=== PATIENT | female | born 1970 | race Caucasian/White ===

== ENCOUNTER 2017-04-14 20:11 | Emergency (ER) | payer OTHER ==
[~2017-04-14] VITALS: Ht 167.6 cm; Wt 87.1 kg
[~2017-04-14 20:11] MED LIST: ADULT LOW DOSE81 MG PO; ATORVASTATIN CA20 MG PO; BENADRYL ALLERG25 M1 PO; FISH OIL CONCEN1 SGL PO; LISINOPRIL HCTZ1 TAB PO; MOBIC 15MG15 MG PO; MOBIC15 M1 PO; MULTIVITAMIN1 TAB PO; PERCOCET 325 MG1 TA2 PO; TRILIPIX 135 M135 MG PO; VICODIN 5-3001 EACH PO; VITAMIN D31000 UNI1 PO
--- NOTE | 2017-04-14 21:25 | RADIOLOGY REPORT ---
EXAMINATION: XR FOREARM, RIGHT CLINICAL INFORMATION: Status post fall COMPARISON: None TECHNIQUE: AP and lateral views of the right forearm were obtained. FINDINGS: There is no fracture or dislocation visualized. The osseous structures appear unremarkable. IMPRESSION: Normal right forearm.
[2017-04-14] MEDS ORDERED: ULTRAM50 M1 PO (22:13)
--- NOTE | 2017-04-14 22:14 | ED UPPER/LOWER EXTREMITY COMPL ---
History of Present Illness General Chief Complaint: Hand or Wrist Injury Stated Complaint: PT HURT HER RT ARM Source: patient, old records Exam Limitations: no limitations Vital Signs & Intake/Output Vital Signs & Intake/Output Vital Signs Date Time Temp Pulse Resp B/P B/P Pulse O2 O2 Flow FiO2 Mean Ox Delivery Rate 04/14 2217 97.1 96 20 106/65 95 Room Air 04/14 2050 97.0 94 22 104/67 96 Room Air Allergies Coded Allergies: No Known Allergies (04/14/17) Reconcile Medications Aspirin (Adult Low Dose Aspirin EC) 81 MG TABLET.DR 81 MG PO DAILY HEART HEALTH (Reported) Atorvastatin Calcium (Lipitor) 20 MG TAB 1 TAB PO DAILY CHOLESTEROL (Reported ) Cholecalciferol (Vitamin D3) (Vitamin D3) 1,000 UNIT CAPSULE 1,000 IU PO DAILY VITAMIN SUPPLEMENT (Reported) DIPHENHYDRAMINE HCL (Benadryl) 25 MG SGL 1 CAP PO QAM ITCHING (Reported) Fenofibric Acid (Trilipix 135 MG CAP) 135 MG CAP 1 CAP PO DAILY CHOLESTEROL ( Reported) Hydrocodone/Acetaminophen (Vicodin 5-300 MG Tablet) 1 EACH TABLET 1 TAB PO Q4- 6 PRN PAIN LISINOPRIL/HYDROCHLOROTHIAZIDE (Lisinopril-Hctz 20-25 MG Tab) 1 TAB TAB 1 TAB PO DAILY BP (Reported) Meloxicam (Mobic) 15 MG TABLET 1 TAB PO DAILY PRN PAIN/INFLAMMATION Multivitamin (Multiple Vitamins) 1 TAB TAB 1 TAB PO DAILY SUPPLEMENT ( Reported) OMEGA-3 FATTY ACIDS (Fish Oil Concentrate) 1 SGL SGL 2 SGL PO BID SUPPLEMENT (Reported) Tramadol HCl (Ultram) 50 MG TABLET 1-2 TAB PO Q6PRN PRN severe pain Triage Note: TRIAGE: PT TO ER C/C RFA PAIN S/P INJURY APPROX 1 HR TWISTER IN. STATES THE DOG DARTED WHILE SHE WAS HOLDING THE LEASH AND HER ARM HIT INTO CAST IRON RAILING. +SWELLING. ICED IMMEDIATELY. REFUSES OFFERED PAIN MEDICATION AT TRIAGE. +CMS. SPLINT APPLIED AT TRIAGE. REQUESTS XRAY. Triage Nurses Notes Reviewed? yes Onset: Just prior to arrival Duration: minute(s):, constant, changing over time, continues in ED Timing: recent history Severity: moderate Pain/Injury Location: Right: Forearm. Method of Injury: direct blow Modifying Factors: Improves With: immobilization, rest. Worsens With: jarring, movement. Associated Symptoms: swelling, GCS 15 since, stiffness LMP (ages 10-50): unknown : No Patient currently breastfeeds: No HPI: Prior to admission patient tripped over her boyfriend's pitbull and struck her right forearm on the stove sustaining abrasion and sharp constant pain with swelling improved after ice nonradiating. She denies other injury fever chills nausea vomiting diarrhea abdominal pain chest pain shortness of breath headache dysuria rash. she is right-hand dominant. Past History Travel History Traveled to [place] past 21 day No Medical History Any Pertinent Medical History? see below for history Neurological: NONE EENT: ALL TEETH HAVE BEEN REMOVED Cardiovascular: hypertension, hyperlipidemia Respiratory: NONE Gastrointestinal: NONE Hepatic: NONE Renal: NONE Musculoskeletal: AVASCULAR NECROSIS OF THE HIP Psychiatric: NONE Endocrine: NONE Blood Disorders: NONE Cancer(s): NONE CAREER DEVELOPMENT MANAGER/Reproductive: NONE Surgical History Surgical History: non-contributory Psychosocial History Who do you live with Family What is your primary language Ukrainian Tobacco Use: Current Daily Use Daily Tobacco Use Amount/Type: => 5 Cigarettes daily ETOH Use: occasional use Illicit Drug Use: denies illicit drug use Family History Hx Contributory? No Review of Systems Review of Systems Constitutional: Reports: no symptoms. EENTM: Reports: no symptoms. Respiratory: Reports: no symptoms. Cardiovascular: Reports: no symptoms. Gastrointestinal/Abdominal: Reports: no symptoms. Genitourinary: Reports: no symptoms. Musculoskeletal: Reports: see HPI, joint pain. Skin: Reports: no symptoms. Neurological/Psychological: Reports: no symptoms. Hematologic/Endocrine: Reports: no symptoms. Immunological: Reports: no symptoms. All Other Systems: Reviewed and Negative Physical Exam Physical Exam General Appearance: well developed/nourished, alert, awake, anxious, mild distress, obese Head: atraumatic Eyes: Bilateral: PERRL, EOMI. Ears, Nose, Throat: normal pharynx, normal ENT inspection, hearing grossly normal Neck: normal inspection, supple Cardiovascular/Respiratory: regular rate/rhythm Peripheral Pulses: 4+ carotid (R), 4+ carotid (L) Back: normal inspection, normal range of motion, no vertebral tenderness Shoulder Left: normal range of motion, normal inspection Shoulder Right: normal range of motion, normal inspection Elbow Left: normal range of motion, normal inspection Elbow Right: normal range of motion, normal inspection, swelling, tenderness, bone tenderness, evidence of injury, pain, soft tissue tenderness (right mid forearm) Hand Left: normal inspection, normal range of motion Hand Right: normal inspection, normal range of motion Upper Extremity Reflexes: 2+: bicep (R), bicep (L), tricep (R), tricep (L). Leg Left: normal range of motion, normal inspection Leg Right: normal range of motion, normal inspection Hip Left: normal range of motion, normal inspection Hip Right: normal range of motion, normal inspection Knee Left: normal range of motion, normal inspection Knee Right: normal range of motion, normal inspection Foot Left: normal inspection, normal range of motion Foot Right: normal inspection, normal range of motion Lower Extremity Reflexes: 2+: knee (R), knee (L). Neurologic/Tendon: normal sensation, normal motor functions, normal tendon functions Skin: normal color, warm/dry, abrasion right forearm Lymphatic: no anterior cervical akhil Progress Differential Diagnosis: compartment syndrome, contusion, fracture, sprain Plan of Care: Orders Procedure Date/time Status Durable Medical Equipment 04/14 2208 Active Diagnostic Imaging: Viewed by Me: Radiology Read. Discussed w/RAD: Radiology Read. Radiology Impression: no acute abnormality, no fracture, no dislocation Departure Departure Time of Disposition: 2211 Disposition: HOME OR SELF CARE Condition: Stable Clinical Impression Primary Impression: Contusion of right forearm, initial encounter Qualifiers: Encounter type: initial encounter Qualified Code: S50.11XA - Contusion of right forearm, initial encounter Referrals: RAUL LATHAM APRN (PCP/Family) Departure Forms: Customer Survey General Discharge Information Prescriptions: Current Visit Scripts Tramadol HCl (Ultram) 1-2 TAB PO Q6PRN PRN severe pain #30 TAB
[2017-04-14 22:17] VITALS: BP 106/65
== END 2017-04-14 22:25 ==
LOC: ERH 20:11
DX: S50.11XA Contusion of right forearm, initial encounter (principal); W01.198A Fall on same level from slipping, tripping and stumbling with subsequent striking against other object, initial encounter; Y93.9 Activity, unspecified; Y92.9 Unspecified place or not applicable
CPT/HCPCS: 73090-RT